=== PATIENT | female | born 2005 | race Caucasian/White ===

== ENCOUNTER 2024-08-09 12:52 | Outpatient (CLI) | payer OTHER, SELFPAY ==
--- NOTE | 2024-08-09 13:00 | CRLHL7_ITS ---
For Patients: As a result of the Cures Act, medical imaging exams and procedure reports are released immediately into your electronic medical record. You may view this report before your referring provider. If you have questions, please contact your health care provider. ULTRASOUND OB PELVIS 1ST TRIMESTER, TRANSVAGINAL CLINICAL INDICATION: Dating and viability. LMP: 06/11/2024. RIVERA by LMP: 03/18/2025. GA: 8 w, 3 d. Previous US: No. CRL: 1.7 cm. 8 w 1 d. RIVERA: 03/20/2025. FHR: 173 BPM. Gestational sac: 3.4 cm. Appears within normal limits. Yolk sac: 3.9mm. Appears within normal limits. Right ovary: Within normal limits. 4.7 x 2.3 x 2.4 cm. Left ovary: Within normal limits. 4.3 x 1.9 x 2.4 cm. CL. IMPRESSION: Single living intrauterine with sonographic gestational age 8 weeks 1 day and sonographic due date 03/20/2025. Subchorionic hemorrhage measures 1.8 x 1.7 x 0.6 cm. Andrea Bryant M.D. Diagnostic Radiologist [email or web address] SP/Dictated by: Andrea Bryant MD @ 08/09/2024 6:59:00 PM (Electronically Signed)
== END 2024-08-09 12:53 | disposition home or self-care (01) ==
LOC: US 12:52
PROVIDERS: PCP Physician Assistant; Visit Provider Registered Nurse
DX: Z34.91 Encounter for supervision of normal pregnancy, unspecified, first trimester (principal); O20.9 Hemorrhage in early pregnancy, unspecified; Z3A.08 8 weeks gestation of pregnancy
CPT/HCPCS: 76817; 83021; 86703; 86706; 86803; 86850; 86900; 86901; 87086; 87340; 87491; 87591

== ENCOUNTER 2024-08-09 13:53 | Outpatient (CLI) | payer OTHER, SELFPAY ==
[2024-08-09 19:59] LABS: Chlamydia DNA Amplified* NOT DETECTED (No Detected); GC DNA Amplified* NOT DETECTED (No Detected)
== END 2024-08-09 13:54 | disposition home or self-care (01) ==
PROVIDERS: PCP Physician Assistant; Visit Provider Registered Nurse
DX: Z34.91 Encounter for supervision of normal pregnancy, unspecified, first trimester (principal); Z3A.08 8 weeks gestation of pregnancy
CPT/HCPCS: 83020; 83021; 85660; 86592; 86703; 86704; 86706; 86762; 86787; 86803; 86850; 86900; 86901; 87086; 87340; 87491; 87591

== ENCOUNTER 2024-11-01 09:00 | Outpatient (CLI) | payer OTHER, BC, SELFPAY ==
--- NOTE | 2024-11-01 09:15 | CRLHL7_ITS ---
For Patients: As a result of the Century Cures Act, medical imaging exams and procedure reports are released immediately into your electronic medical record. You may view this report before your referring provider. If you have questions, please contact your health care provider. OB ULTRASOUND GREATER THAN 14 WEEKS, 11/01/2024 CLINICAL HISTORY: anatomic survey. COMPARISON: None. TECHNIQUE: Real time walters scale imaging of the fetus was performed. Transabdominal imaging performed. FINDINGS: LMP: 06/11/2024. RIVERA by US: 03/20/2025. GA: 20 weeks 1 day. position: Vertex. Placenta/Cord: Placenta position: Anterior. Placenta tip to internal OS: 4.2 cm. Umbilical Cord: 3 vessel cord. Placental insertion: Central. Amniotic Fluid: 4.1 cm SDP. Cervix: Visualized. Length of closed cervix: 3.6 cm. Observed Structures: Calvarium/Spine: Cerebellum 2.0 cm, 19 weeks 0 days Cisterna Magna 5.2 mm Nuchal Fold: 5.8 mm Lateral Ventricle: 6.7 mm CSP Midline Falx Choroid Plexus Abdomen: Stomach Abd Cord Insert Urinary Bladder Kidneys Face: Orbital view Limbs: Upper extremities Lower extremities Hands Feet Vascular: LVOT RVOT BIOMETRY: BDP: 4.7 cm, 20 weeks 0 days. 46.0% HC: 17.6 cm, 20 weeks 1 day. 39.3% AC: 15.3 cm, 20 weeks 4 days. 57.7% FL: 3.3 cm, 20 weeks 2 days. 48.5% FL/AC: 21.5% HC/AC Ratio: 1.2 Heart Rate: 157 bpm age by this US: 20 weeks 2 days RIVERA by this US: 03/19/2025 EFW: 350.7 g, 0 lb 12 oz Percentile by RIVERA: 59.7% IMPRESSION: 1. Concordance of clinical and sonographic dating. 2. Incomplete visualization of the spine, diaphragm, nose, lips, profile and 4 chamber heart. Remainder of the anatomic survey is normal. Short-term follow-up is recommended. Andrea Bryant M.D. Diagnostic Radiologist [facility] [employer]. [email or web address] Transcribed: 1:09 pm DW/Dictated by: Andrea Bryant MD @ 11/01/2024 12:01:00 PM (Electronically Signed)
--- OUTSIDE RECORDS SUMMARY | 2024-11-02 00:47 | XMS_ITS | Clinical Summary ---
Author Organization [facility] Address [address] [place] [address] Care Team Providers Care Equipment Associate Name Role Phone Unavailable Primary Care Provider Unavailabl e Source Comments You are receiving this document as you are listed as the primary care provider,follow-up provider, or the patient has been referred to you for consultation.This is in compliance with the Medicare and[facility] EHR Incentive Program,which states Providers who transition their patient to another setting of careor provider of care or refers their patient to another provider of care shouldprovide summary care record for each transition of care or referral. [facility] Allergies No known active allergies Medications spironolactone (ALDACTONE) 50 MG tablet Take 1 Tablet (50 mg) by mouth daily. 2 Active venlafaxine (EFFEXORXR) 75 MG 24 hour release capsule Take 1 Capsule (75 mg) by mouth daily. 3 Active escitalopram oxalate (LEXAPRO) 20 MG tablet Take 1 Tablet (20 mg) by mouth. 4 Active vitamin-ferrous fumarate-folic acid (PRENATALPLUS) 27-1 MG tabletIndications: Take 1 Tablet by mouth daily. Indications: Active folic Acid 800 MCG tabletIndications: taking for having junenile epilepsy Take 4 Tablets (3,200 mcg) by mouth daily. Indications: taking for having junenile epilepsy Active ondansetron (ZOFRAN-ODT) 4 MG disintegrating tablet Take 1 Tablet (4 mg) by mouth every 8 hours as needed for Nausea. 12 Tablet 5 Active doxylamine succinate (UNISOM) 25 MG tablet Take 0.5 Tablets (12.5 mg) by mouth two times a day. 60 Tablet Active pyridoxine (VITAMIN B-6) 50 MG tablet Take 1 Tablet (50 mg) by mouth three times a day. 30 Tablet 5 Active Active Problems Problem Noted Date Diagnosed Date Chronic idiopathic constipation 03/27/2023 JERILYN (generalized anxiety disorder) 03/24/2023 Mild intermittent asthma without complication Estimated Date of Delivery Comme nts Yes 03/18/2025 Based on last me nstrual period of 06/11/2024 Encounters Date Type Department Care Team Description 08/05/2024 11:40 AM CDT [facility] [address] [id number] Turner Harris MD Nausea and vomiting, unspecified vomiting type (Primary Dx); Hyperemesis gravidarum from Last 3 Months Social History Tobacco Use Types Packs/Day Years Used Date Smoking Tobacco: Never Smokeless Tobacco: Never Tobacco Cessation:Counseling Given: Not Answered Alcohol Use Standard Drinks/Week Comments Never 0 (1 standard drink = 0.6 oz pur e alcohol) Estimated Date of Delivery Comme nts Yes 03/18/2025 Based on last me nstrual period of 06/11/2024 Sex and Gender Information Value Date Recorded Sex Assigned at Not on file 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 Gender Identity Not on file Sexual Orientation Not on file 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 file Not on file Not on fi le Last Filed Vital Signs Vital Sign Reading Time Taken Comments Blood Pressure 122/76 08/05/2024 11:46 AM CDT Pulse 96 08/05/2024 11:46 AM CDT Temperature 36.3 C (97.4 F) 08/05/2024 11:24 AM CDT Respiratory Rate 18 08/05/2024 11:24 AM CDT Oxygen Saturation 99% 08/05/2024 11:24 AM CDT Inhaled Oxygen Concentration - - Weight - - Height - - Body Mass Index - - Plan of Treatment Health Maintenance Due Date Last Done Comments Cervical Cancer Screening Due 2003 Hep C Screening (Preventive Services) 2003 MenB Immunization Discussion 2003 Asthma ACT (score of 20 or higher) 2007 Pneumococcal Vaccine (2 of 2 - PCV) 06/02/2017 06/02/2016 HIV Screening (Preventive Services) 2019 HPV Vaccine (3 - 3-dose series) 09/25/2020 07/03/2020, 05/24/2019 Adult Preventive Visit 09/14/2021 HepB Vaccine (1) 09/14/2022 Chlamydia 12/05/2023 12/04/2022, 12/04/2022 COVID-19 Vaccine (4 - season) 2024 04/15/2022, 06/08/2021, 05/11/2021 Influenza Vaccine (Season Ended) 2025 04/15/2022 DTaP/Tdap/Td Vaccine (7 - Tdap) 10/28/2025 10/29/2015, 12/28/2008, 09/17/2004, Additional history exists Zoster/Shingles Vaccine (1 of 2) 09/14/2053 IPV (Polio) Vaccine Completed 12/28/2008, 03/24/2005, 01/28/2004, Additional history exists Hib Vaccine Aged Out 06/02/2016 No longer eligi ble based on patient's age to complete this topic HepA Vaccine Completed 05/24/2019, 10/29/2015 MCV4 Vaccine Completed 07/03/2020, 10/29/2015 Insurance [employer] FULLY INSURED Win Win Slots
--- OUTSIDE RECORDS SUMMARY | 2024-11-02 00:48 | XMS_ITS | Clinical Summary ---
Author Organization [facility] Address [address] [place] [address] Care Team Providers Care Manager Pacu Name Role Phone NadiaFilemonFaith SHAYNA Primary Care Provider [phone] Andrea Gomez MD Unavailable [phone] Allergies No known active allergies Medications Linaclotide (LINZESS PO) Take 145 mcg by mouth every morning (before breakfast) Active Social History Tobacco Use Types Packs/Day Years Used Date Smoking Tobacco: Never Assessed Adolescent Education Answer Date Record ed Getting School Help Needed Not on file 02/17 Comments Unknown Sex and Gender Information Value Date Recorded Sex Assigned at Not on file 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 Gender Identity Not on file Sexual Orientation Not on file Last Filed Vital Signs Vital Sign Reading Time Taken Comments Blood Pressure 107/93 01/16/2022 9:36 PM CDT Pulse 80 01/16/2022 9:36 PM CDT Temperature 36.6 C (97.9 F) 01/16/2022 9:36 PM CDT Respiratory Rate 18 01/16/2022 9:36 PM CDT Oxygen Saturation 97% 01/16/2022 9:36 PM CDT Inhaled Oxygen Concentration - - Weight 63.5 kg (140 lb) 01/16/2022 9:36 PM CDT Height - - Body Mass Index - - Plan of Treatment Health Maintenance Due Date Last Done Comments ADVANCE CARE PLANNING 2003 ANNUAL REVIEW OF HM ORDERS 2003 CHLAMYDIA SCREENING 2003 YEARLY PREVENTIVE VISIT 09/14/2006 HIV SCREENING 09/14/2018 MENINGITIS B VACCINE (1 of 2 - Standard) 2019 HPV VACCINE (3 - 3-dose series) 09/25/2020 07/03/2020, 05/24/2019 HEPATITIS C SCREENING 09/14/2021 COVID-19 VACCINE (4 - season) 2024 04/15/2022, 06/08/2021, 05/11/2021 PHQ-2 (once per calendar year) 2024 PAP 09/14/2024 INFLUENZA VACCINE (Season Ended) 2025 04/15/2022 DTAP/TDAP/TD VACCINE (7 - Td or Tdap) 10/28/2025 10/29/2015, 12/28/2008, 09/17/2004, Additional history exists ZOSTER VACCINE (1 of 2) 09/14/2053 HEPATITIS B VACCINE Completed 12/28/2008, 2003, 2003 PNEUMOCOCCAL VACCINE: PEDIATRICS (0 to 5 YEARS) AND AT-RISK PATIENTS (6 to 49 YEARS) Aged Out 06/02/2016 No longer eligible based on patient's age to complete this topic MENINGITIS VACCINE Completed 07/03/2020, 10/29/2015 [facility] Plan A Drink [address] [phone] [facility] A [facility] [address] [phone] Care Teams Manager Pacu Relationship Specialty Start Date End Date Arendt, Faith, PURCHASE REQUEST EDITOR [address] [place] [address] PCP - General 03/14/14 Andrea Gomez MD [address] [facility] [address] [place] [address] Physician cisco network engineer 07/13/24
--- OUTSIDE RECORDS SUMMARY | 2024-11-02 00:48 | XMS_ITS | Clinical Summary ---
Author Organization [facility] Address [address] [place] [address] Care Team Providers Care Manager Stars Name Role Phone None Primary Care Provider Unavailabl e Allergies No known active allergies Medications spironolactone (ALDACTONE) 50 mg tabletIndication s:Acne, unspecified acne type Take 1 Tablet (50 mg) by mouth once daily. 90 Tablet 3 05/26/2024 Active FLUoxetine (PROZAC) 20 mg capsuleIndicatio ns:MDD (major depressive disorder), recurrent episode, mild,JERILYN (generalized anxiety disorder) Take 1 Capsule (20 mg) by mouth once daily in the morning. 90 Capsule 2 06/19/2024 Active Active Problems Problem Noted Date Diagnosed Date Chronic idiopathic constipation 03/27/2023 JERILYN (generalized anxiety disorder) 03/24/2023 Resolved Problems Problem Noted Date Diagnosed Date Resolved Date Mild intermittent asthma without complication 01/16/20 23 05/26/2024 Chronic constipation 07/07/2014 023 Constipation 04/10/2014 12/04/2022 Encounters Date Type Department Care Team Description 08/09/2024 Orders Only [facility] Scanner 1 scan: ([facility]-Ord[facility], 08/09/2024 08/05/2024 Telephone [facility] [address] [place] [address] Maira Sanchez PA Appointment from Last 3 Months Immunizations Immunization Administration Dates Next Due DTaP 12/28/2008, 5,03/24/2004,01/27,2003 HIB PRP-OMP (PedvaxHIB) 06/02/2016 HPV 9 (Gardasil 9) 07/03/2020,05/23/2019 Hepatitis A (Peds) 05/23/2019,10/29/2015 Hepatitis B (Peds) 2003 Hepatitis B, Unspecified 12/28/2008,2003,0 2003 Inactivated Polio Vaccine 12/28/2008,,01/28/2004,11/19 Influenza,CCIIV4 PRESERV FREE 04/15/2022 MENINGOCOCCAL VACCINE 2 VIAL 2MO-55YO (MENVEO) 07/03/2020,10/29/2015 MMR 12/28/2008,09/17/2004 Pneumococcal Poly,23-Valent (Pneumovax) 06/02/2016 Tdap 10/29/2015 Varicella Vaccine 03/16/2009,09/17/2004 Family History Medical History Relation Name Comments No Known Problems Brother 1 Chemo No Known Problems Brother 2 Satnam Diabetes type II Father Florencio GI Disease Father Florencio Grant as a child Unknown Maternal Grandfather Heart Disease Maternal Grandmother Hypertension Maternal Grandmother Thyroid Disease Mother Coreen Diabetes Paternal Grandfather Heart Disease Paternal Grandfather Hypertension Paternal Grandfather Alzheimer's disease Paternal Grandmother No Known Problems Sister 1 Krista No Known Problems Sister 2 Christina Relation Name Status Comments Brother 1 Chemo Alive Brother 2 Satnam Alive Father Florencio Alive Maternal Grandfather Maternal Grandmother Alive Mother Coreen Alive Paternal Grandfather Paternal Grandmother Alive Sister 1 Krista Alive Sister 2 Christina Alive Social History Tobacco Use Types Packs/Day Years Used Date Smoking Tobacco: Never Smokeless Tobacco: Never Tobacco Cessation:Counseling Given: Yes Comments:father smokes outside- he quit Alcohol Use Standard Drinks/Week Comments Never 0 (1 standard drink = 0.6 oz pur e alcohol) PHQ-2 Answer Date Recorded PHQ-2 TOTAL SCORE 5 05/26/2024 Social Connections Answer Date Recorded Do you often feel lonely or isolated from those around you? 0 05/22/2024 Financial Resource Strain Answer Date R ecorded Difficulty of Paying Living Expenses 3 05/22/2024 Difficulty of Paying Living Expenses Not on file 05/22/2024 Food Insecurity Answer Date Recorded Do you worry your food will run out before you are able to buy more? 1 05/22/2024 Transportation Needs Answer Date Record ed Does lack of transportation keep you from medica l appointments? 1 05/22/2024 Does lack of transportation keep you from work, meetings or getting things that you need? 1 05/22/2024 Housing Stability Answer Date Recorded What is your housing situation today? 1 05/22/2024 Utilities Answer Date Recorded Do you have trouble paying f or utilities (for example, heat, electricity, water, phone)? 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 Not on file Not on herminio e Obstetrics History Para Term AB IAB SAB Ectopic Multiple Livin g Live Births 0 0 0 0 0 0 0 0 0 0 0 Last Filed Vital Signs Vital Sign Reading Time Taken Comments Blood Pressure 124/82 05/26/2024 7:44 AM METAL TRIMMER Pulse 96 05/26/2024 7:44 AM METAL TRIMMER Temperature 36.3 C (97.4 F) 05/19/2023 8:53 AM METAL TRIMMER Respiratory Rate 16 05/19/2023 8:53 AM METAL TRIMMER Oxygen Saturation 98% 05/26/2024 7:44 AM METAL TRIMMER Inhaled Oxygen Concentration - - Weight 85.3 kg (188 lb) 05/26/2024 7:44 AM METAL TRIMMER Height 168.5 cm (5' 6.34) 05/26/2024 7:44 AM CS T Body Mass Index 30.03 05/26/2024 7:44 AM METAL TRIMMER Plan of Treatment Health Maintenance Due Date Last Done Comments HPV series for age 9-26 (3 - 3-dose series) 09/25/2020 07/03/2020, 05/23/2019 Chlamydia for age 16-24 12/05/2023 12/04/2022 COVID-19 vaccine series ( season) 2024 04/15/2022, 06/08/2021, 05/11/2021 Pap test for age 21-65 09/14/2024 Influenza Vaccine (Season Ended) 2025 04/15/2022 BMI (ht and wt on same day) for age 18+ 05/26/2025 05/26/2024, 06/04/2023, 05/28/2023, Additional history exists Depression screening for age 12+ 05/26/2025 05/26/2024, 04/22/2023, 01/15/2023, Additional history exists Tetanus booster 10/28/2025 10/29/2015 Hepatitis B series for 19+ Completed 12/28, 2003, 2003, Additional history exists (IA) Tdap Completed 10/29/2015 Pneumococcal series for age 6-49 Aged Out 06/02/2016 No longer eligible based on patient's age to complete this topic Meningococcal series for age 11-21 Completed 07/03/2020, 10/29/2015 HIV for age 15-65 Completed 12/04/2022 Hepatitis C screening for age 18-79 Completed 12/04/2022 Procedures Procedure Name Priority Date/Time Associated Diagnosis Comments SCAN-ULTRASOUND REPORT 08/09/2024 12:00 AM CDT LC HIV-1/O/2, 4TH GENERATION Routine 12/04/2022 12:53 PM CDT Need for hepatitis C screening test LC HCV ANTIBODY RFX TO QUANT PCR Routine 12/04/2022 12:53 PM CDT Encounter for screening for HIV GC CHLAMYDIA TRACH PROBE Routine 12/04/2022 12:53 PM CDT Screening for chlamydial disease from Last 3 Months or Most Recently Relevant to Health Maintenance Results * SCAN-ULTRASOUND REPORT (08/09/2024 12:00 AM CDT) Anatomical Region Laterality Modality Other us Scanner OTHER Final Result * LC HCV ANTIBODY RFX TO QUANT PCR (12/04/2022 12:53 PM CDT) HCV Ab Non Reactive Non Reactive 12/07/2022 7:07 AM CDT [facility]) Blood BLOOD SPECIMEN / Unknown Venipuncture / Unknown 12/04/2022 12:53 PM CDT 12/04/2022 12:53 PM CDT Narrative [facility] ([facility]) - 12/07/2022 7:07 AM CDT Performed at: [address] [place] [address] [id number] Army Helicopter Pilot: Gonsalo Mccloud MD, Phone: [phone] Elvira Johnston MD LABORATORY Final R esult Performing Organization Address City/[facility]/ZIP Co de Phone Number [facility] ([facility]) [address] [place] [address], * HIV-1/O/2, 4TH GENERATION (12/04/2022 12:53 PM CDT) Pathologist [facility] HIV Scr 4th Gen Non Reactive Non Reactive 12/06/2022 2:07 PM CDT [facility] ([facility]) Comment: HIV Negative HIV-1/HIV-2 antibodies and HIV-1 p24 antigen were NOT detected. There is no laboratory evidence of HIV infection. Blood BLOOD SPECIMEN / Unknown Venipuncture / Unknown 12/04/2022 12:53 PM CDT 12/04/2022 12:53 PM CDT [facility] ([facility]) - 12/06/2022 2:07 PM CDT Performed at: [address] [place] [address] [id number] Army Helicopter Pilot: Gonsalo Mccloud MD, Phone: [phone] us Elvira Johnston MD LABORATORY Final R esult Performing Organization Address City/[facility]/ZIP Co de Phone Number [facility] [address] [id number] * GC CHLAMYDIA TRACH PROBE (12/04/2022 12:53 PM CDT) CHLAMYDIA PROBE Negative 1:28 AM CDT [facility] N GONORRHOEAE PROBE Negative 12/05/2022 1:28 AM CDT [facility] Other URINE SPECIMEN / Unknown Non-Blood / Unknown 12/04/2022 12:53 PM CDT 12/04/2022 12:53 PM CDT us Elvira Johnston MD MICROBIOLOGY Final R esult [facility] [address] [place] [address], from Last 3 Months or Most Recently Relevant to Health Maintenance Insurance [facility] [place] [id number] [facility] Care Teams Manager Stars Relationship Specialty Start Date End Date None . PCP - General 05/13/24
== END 2024-11-01 09:01 | disposition home or self-care (01) ==
LOC: US 09:02
PROVIDERS: PCP Physician Assistant; Visit Provider Obstetrics & Gynecology
DX: Z34.92 Encounter for supervision of normal pregnancy, unspecified, second trimester (principal); O35.8XX0 Maternal care for other (suspected) fetal abnormality and damage, not applicable or unspecified; Z3A.20 20 weeks gestation of pregnancy
CPT/HCPCS: 76805

== ENCOUNTER 2024-11-28 07:11 | Outpatient (CLI) | payer OTHER, SELFPAY ==
--- NOTE | 2024-11-28 07:15 | CRLHL7_ITS ---
For Patients: As a result of the Century Cures Act, medical imaging exams and procedure reports are released immediately into your electronic medical record. You may view this report before your referring provider. If you have questions, please contact your health care provider. OB ULTRASOUND SURVEY LMP: 06/11/2024. RIVERA by US: 03/20/2025. GA: 24 w, 0 d. INDICATION: Follow-up anatomy. COMPARISON: Ultrasound 11/01/2024. TECHNIQUE: Real time grayscale imaging of the fetus was performed. Evaluate anatomy. Transabdominal imaging performed. FINDINGS: CERVIX: Visualized. Measurement: 3.4 cm. POSITIONING: Vertex. AMNIOTIC FLUID: 6.1 cm. SDP (N: greater than 2 x 1 cm) PLACENTA: Technique: Transabdominal. PLACENTA POSITION: Anterior. DOPPLER: heart rate: 152 bpm. BIOMETRY: BPD: 5.6 cm. 23 w, 2 d, 17.8 percent. HC: 22.0 cm. 24 w, 0 d, 33.1 percent. AC: 20.2 cm. 24 w, 6 d, 68.1 percent. FL: 4.3 cm. 24 w, 0 d, 37.0 percent. FL/AC ratio: 21.2 percent. HC/AC ratio: 1.1. EFW: 688.6 g. Weight: 1 lbs, 8 oz. age by this US: 24 w, 0 d. RIVERA by this US: 03/20/2025. Percentile by RIVERA: 58.7 percent. COMMENT: The diaphragm, three-vessel cord, four-chamber heart, left ventricular outflow tract, nasal profile, nose and lips are visualized and within normal limits. Limited visualization of spine due to position. Grossly unremarkable. IMPRESSION: Single live intrauterine gestation at 24 weeks 0 days and RIVERA 03/20/2025. The estimated weight is 689 grams which lies at the 59th percentile. The abdominal circumference is at 68.1 percent. Limited evaluation demonstrates normal profile, nose, lips, diaphragm, four-chamber heart. Spine appears unremarkable and suboptimally visualized due to position. Tosin Ramires M.D. Diagnostic/Breast Radiologist [email or web address] STAS/devyn shepard/Dictated by: Tosin Ramires MD @ 12/01/2024 11:54:00 AM (Electronically Signed)
== END 2024-11-28 07:12 | disposition home or self-care (01) ==
PROVIDERS: PCP Physician Assistant; Visit Provider Obstetrics & Gynecology
DX: Z34.92 Encounter for supervision of normal pregnancy, unspecified, second trimester (principal); Z3A.24 24 weeks gestation of pregnancy
CPT/HCPCS: 76816

== ENCOUNTER 2024-12-26 08:34 | Outpatient (CLI) | payer OTHER, SELFPAY | END 2024-12-26 08:35 | disposition home or self-care (01) | LOC: NFLDREF 01-03 08:25 | PROVIDERS: PCP Physician Assistant; Referring Provider Physician Assistant; Visit Provider Obstetrics & Gynecology | DX: Z34.03 Encounter for supervision of normal first pregnancy, third trimester (principal) | CPT/HCPCS: 86592 ==

== ENCOUNTER 2025-01-03 07:49 | Outpatient (CLI) | payer OTHER, SELFPAY | END 2025-01-03 07:50 | disposition home or self-care (01) | LOC: NFLDREF 15:04 | PROVIDERS: PCP Physician Assistant; Referring Provider Physician Assistant; Visit Provider Obstetrics & Gynecology | DX: R73.09 Other abnormal glucose (principal) | CPT/HCPCS: 82951; 82952 ==

== ENCOUNTER 2025-01-23 09:10 | Outpatient (CLI) | payer OTHER, BC, SELFPAY ==
--- NOTE | 2025-01-23 09:15 | CRLHL7_ITS ---
For Patients: As a result of the Century Cures Act, medical imaging exams and procedure reports are released immediately into your electronic medical record. You may view this report before your referring provider. If you have questions, please contact your health care provider. RIVERA by US: 03/20/2025, GA: 32w, 0d. Single. INDICATION: Gestational diabetes. CERVIX: Not visualized. POSITIONING: Vertex. AMNIOTIC FLUID: 7.0 cm SDP. PLACENTA: Technique: Transabdominal. PLACENTA POSITION: Anterior. DOPPLER: heart rate: 167 bpm. Biometry: BPD: 8.1 cm. 32w, 4d, 58 percent. HC: 29.4 cm. 32w, 3d, 25 percent. AC: 29.5 cm. 33w, 3d, 86 percent. FL: 6.1 cm. 31w, 4d, 27 percent. FL/AC ratio: 20.67 percent. HC/AC ratio: 1.00. EFW: 2040 g. Weight: 4 lbs, 8 oz. age by this US: 32w, 4d. RIVERA by this US: 03/16/2025. Percentile by RIVERA: 64 percent. IMPRESSION: 1. Sonographic gestational age 32 weeks 4 days and sonographic due date of 03/16/2025. Good correlation with dates. Normal interval growth. 2. Estimated weight 64th percentile. Abdominal circumference 86th percentile. Andrea Bryant M.D. Diagnostic Radiologist [email or web address] bM/Dictated by: Andrea Bryant MD @ 01/23/2025 3:42:00 PM (Electronically Signed)
== END 2025-01-23 09:11 | disposition home or self-care (01) ==
LOC: US 09:10
PROVIDERS: PCP Physician Assistant; Visit Provider Obstetrics & Gynecology
DX: O24.419 Gestational diabetes mellitus in pregnancy, unspecified control (principal); Z3A.32 32 weeks gestation of pregnancy
CPT/HCPCS: 76816

== ENCOUNTER 2025-01-30 12:08 | Outpatient (CLI) | payer OTHER, SELFPAY ==
--- NOTE | 2025-01-30 12:15 | CRLHL7_ITS ---
For Patients: As a result of the Century Cures Act, medical imaging exams and procedure reports are released immediately into your electronic medical record. You may view this report before your referring provider. If you have questions, please contact your health care provider. RIVERA by US: . GA: 33w, 0d. INDICATION: Gestational diabetes mellitus A2. CERVIX: Not visualized. POSITIONING: Vertex. AMNIOTIC FLUID: 5.6 cm SDP. BIOPHYSICAL PROFILE: Total score: 8. Gross body movements: 2. tone: 2. Respiratory activity: 2. Amniotic fluid: 2. (SDP N: Increase 2 x 1 cm) PLACENTA: Technique: Transabdominal. PLACENTA POSITION: Anterior. DOPPLER: heart rate: 163 bpm. IMPRESSION: Normal biophysical profile 12/09. Andrea Bryant M.D. Diagnostic Radiologist [email or web address] bM/Dictated by: Andrea Bryant MD @ 01/30/2025 4:22:00 PM (Electronically Signed)
== END 2025-01-30 12:09 | disposition home or self-care (01) ==
LOC: US 12:08
PROVIDERS: PCP Physician Assistant; Visit Provider Obstetrics & Gynecology
DX: O24.419 Gestational diabetes mellitus in pregnancy, unspecified control (principal); Z3A.33 33 weeks gestation of pregnancy
CPT/HCPCS: 76819

== ENCOUNTER 2025-02-03 23:22 | Outpatient (CLI) | payer OTHER, BC, SELFPAY ==
[2025-02-03 23:42] VITALS: BP 134/77; PULSE 97
[2025-02-03 23:43] VITALS: PULSE 99; O2SAT 96
[2025-02-03 23:45] VITALS: PULSE 99; O2SAT 94
[2025-02-03 23:58] VITALS: BP 116/65; PULSE 95
[2025-02-04] VITALS (15 sets, daily range): BP systolic 87–119; BP diastolic 50–63; PULSE 74–97; TEMP 36.9
[2025-02-04 00:35] LABS: Hematocrit* 33.6 % (33.0-51.0); Hemoglobin* 11.1 gm/dL (12.0-16.0); Mean Corpuscular HGB Conc 33 gm/dL (32-36); Mean Corpuscular Hemoglobin 27 pg (26-34); Mean Corpuscular Volume 82 fL (80-100); Red Blood Count* 4.08 m/uL (4.00-5.20); White Blood Count* 15.40 K/uL (4.50-11.00)
[2025-02-04 00:48] LABS: Slide Review Reflex No
[2025-02-04] MEDS: LACTATED RINGERS 500 ML 500 ML IV (00:50)
[2025-02-04 00:52] LABS: Alanine Aminotransferase* 17 U/L (4-35); Aspartate Amino Transferase* 22 U/L (12-35); Blood Urea Nitrogen* 9 mg/dL (5-24); Creatinine* 0.5 mg/dL (0.5-1.5); Estimated Glomerular Filt Rate 137 ml/min
[2025-02-04 01:08] LABS: Protein Creatinine Ratio Urine 0.34 (0-0.19)
[2025-02-04] MEDS: LACTATED RINGERS 1000 ML 1,000 ML IV (02:36)
[2025-02-04 04:35] LABS: Protein Creatinine Ratio Urine 0.64 (0-0.19)
--- NOTE | 2025-02-04 05:22 | PC.OBNST ---
NST Note NST Note Start: 02/03/25 23:26 Freq: ONCE Status: Active Protocol: Document 02/04/25 05:18 STEVIEMariama (Rec: 02/04/25 05:22 EMERITA Pries) NST Note 1 Para (# of births) 0 EDC 03/20/25 Gestational Age In 33 Weeks & 5 Days Weeks & Days High Risk Factors Diabetes - Gestational Insulin Patient Presented Headache with Complaint(s) of Other Complaints Pt called triage line and was directed to the center by Marsha Sarmiento CNM. Pt reports headache 12/11 despite taking Tylenol and Reglan. Reactive Yes Appropriate for Yes Gestational Age MARIS Sanchez RN Date 02/04/25 Reactive Yes Appropriate for Yes Gestational Age MARIS Evans Date 02/04/25 OB NST charge Yes Complete NST Note Yes via Write Note The provider's electronic signature indicates the NST is reactive/appropriate for gestational age. *Note to provider: If an addendum is required, open the patient's chart and click on the note under the Nurse/Allied Health tab.
== END 2025-02-04 04:26 | disposition home or self-care (01) ==
LOC: OB OUT 23:22 → OB 23:22
PROVIDERS: PCP Physician Assistant; Visit Provider Obstetrics & Gynecology
DX: O26.893 Other specified pregnancy related conditions, third trimester (principal); R51.9 Headache, unspecified; Z3A.33 33 weeks gestation of pregnancy
CPT/HCPCS: 36415; 59025; 82565; 82570; 84156; 84450; 84460; 84520; 85027; G0463; A9270; J1200; J7120

== ENCOUNTER 2025-02-06 08:44 | Outpatient (CLI) | payer OTHER, BC, SELFPAY | END 2025-02-06 08:45 | disposition home or self-care (01) | PROVIDERS: PCP Physician Assistant; Visit Provider Obstetrics & Gynecology | DX: Z34.93 Encounter for supervision of normal pregnancy, unspecified, third trimester (principal); Z3A.34 34 weeks gestation of pregnancy | CPT/HCPCS: 82570; 84156 ==

== ENCOUNTER 2025-02-06 09:08 | Outpatient (CLI) | payer OTHER, BC, SELFPAY ==
--- NOTE | 2025-02-06 09:15 | CRLHL7_ITS ---
For Patients: As a result of the Century Cures Act, medical imaging exams and procedure reports are released immediately into your electronic medical record. You may view this report before your referring provider. If you have questions, please contact your health care provider. INDICATION: GDAM2. TECHNIQUE: Ultrasound OB pelvis transabdominal. Real-time walters-scale imaging of the fetus was performed without stress testing. COMPARISON: Ultrasound January 30, 2025 FINDINGS: heart rate: Regular, 133 bpm. position: Cephalic. Placenta: Anterior Amniotic fluid volume single deepest pocket 5.3 cm, 2/2. motion 2/2. tone 2/2. breathing movements 2/2. Umbilical artery S/D ratio: Not measured. IMPRESSION: Single viable intrauterine with a biophysical profile 12/09. Dictated by Robin Elise MD @ 02/06/2025 3:13:16 PM (Electronically Signed)
== END 2025-02-06 09:09 | disposition home or self-care (01) ==
LOC: US 09:08
PROVIDERS: PCP Physician Assistant; Visit Provider Obstetrics & Gynecology
DX: O24.419 Gestational diabetes mellitus in pregnancy, unspecified control (principal); Z34.93 Encounter for supervision of normal pregnancy, unspecified, third trimester; Z3A.34 34 weeks gestation of pregnancy
CPT/HCPCS: 76819; 82570; 84156

== ENCOUNTER 2025-02-13 09:11 | Outpatient (CLI) | payer OTHER, BC, SELFPAY ==
--- NOTE | 2025-02-13 09:15 | CRLHL7_ITS ---
For Patients: As a result of the Century Cures Act, medical imaging exams and procedure reports are released immediately into your electronic medical record. You may view this report before your referring provider. If you have questions, please contact your health care provider. Indication: Gestational diabetes mellitus. Assess well-being with a biophysical profile examination. Technique: Sonography of the gravid uterus was performed. The study is limited to the protocol for a biophysical profile and limited to that which is discussed below Comparison: February 06, 2025 Findings: The cervix was not visualized. position is vertex. The single deepest pocket 6.2 centimeters. The placenta is anterior. heart rate is 144 beats per minute. The biophysical profile score is 6/8. There were inadequate breathing movements for a normal score. Impression: The biophysical profile score is 6/8. Two points were deducted for inadequate breathing movements during the time course of the exam. The biophysical profile score was 6/8 on February 06, 2025 Dictated by Alli Hunt MD @ 02/13/2025 10:13:09 AM (Electronically Signed)
== END 2025-02-13 09:12 | disposition home or self-care (01) ==
LOC: US 09:12
PROVIDERS: PCP Physician Assistant; Visit Provider Obstetrics & Gynecology
DX: O24.419 Gestational diabetes mellitus in pregnancy, unspecified control (principal)
CPT/HCPCS: 76819

== ENCOUNTER 2025-02-20 12:13 | Outpatient (CLI) | payer OTHER, BC, SELFPAY ==
--- NOTE | 2025-02-20 12:15 | CRLHL7_ITS ---
For Patients: As a result of the Cures Act, medical imaging exams and procedure reports are released immediately into your electronic medical record. You may view this report before your referring provider. If you have questions, please contact your health care provider. OB ULTRASOUND RIVERA by US: 03/20/2025. GA: 36 w, 0 d. Single. Comparison: Ultrasound 02/13/2025, 02/06/2025, 01/30/2025. INDICATION: Gestational diabetes mellitus. TECHNIQUE: Real time grayscale imaging of the fetus was performed. Transabdominal. CERVIX: Not visualized. POSITIONING: Vertex. AMNIOTIC FLUID: 7.4 cm. SDP (N: greater than 2 x 1 cm) BIOPHYSICAL PROFILE: 2: Gross body movements 2: tone 2: Respiratory activity 2: Amniotic fluid SDP (N: greater than 2 x 1 cm) 8/8: Total score PLACENTA: Technique: Transabdominal. PLACENTA POSITION: Anterior. DOPPLER: heart rate: 126 bpm. BIOMETRY: BPD: 8.9 cm. 36 w, 0 d, 60%. HC: 32.5 cm. 36 w, 6 d, 39%. AC: 34.0 cm. 37 w, 6 d, 96%. FL: 6.8 cm. 35 w, 1 d, 23%. FL/AC ratio: 20.09%. HC/AC ratio: 0.96. EFW: 3061g. Weight: 6 lbs., 12 oz. age by this US: 36 w, 3 d. RIVERA by this US: 03/17/2025. Percentile by RIVERA: 76%. IMPRESSION: 1. Normal biophysical profile score 8/8. 2. Sonographic gestational age 36 weeks 3 days and sonographic due date 03/17/2025. Good correlation with dates. Normal interval growth. 3. Estimated weight 76th percentile. Abdominal circumference 96th percentile. Andrea Bryant M.D. Diagnostic Radiologist [email or web address] J CARLOS/devyn shepard/Dictated by: Andrea Bryant MD @ 02/20/2025 5:58:00 PM (Electronically Signed)
== END 2025-02-20 12:14 | disposition home or self-care (01) ==
LOC: US 12:17
PROVIDERS: PCP Physician Assistant; Visit Provider Obstetrics & Gynecology
DX: O24.419 Gestational diabetes mellitus in pregnancy, unspecified control (principal); Z3A.36 36 weeks gestation of pregnancy
CPT/HCPCS: 76816; 76819; 87081; 87653

== ENCOUNTER 2025-02-27 09:10 | Outpatient (CLI) | payer OTHER, BC, SELFPAY ==
--- NOTE | 2025-02-27 09:15 | CRLHL7_ITS ---
For Patients: As a result of the Cures Act, medical imaging exams and procedure reports are released immediately into your electronic medical record. You may view this report before your referring provider. If you have questions, please contact your health care provider. OBSTETRICAL ULTRASOUND ??? BIOPHYSICAL PROFILE INDICATION: GDMA2. CLINICAL HISTORY: RIVERA by Ultrasound: 03/20/2025 Gestational Age: 37 weeks 0 days COMPARISON: 02/20/2025, 02/13/2025, 02/06/2025. TECHNIQUE: Real-time walters-scale transabdominal imaging of the fetus was performed. FINDINGS: Fetus: Single Cervix: Not visualized positioning: Vertex Amniotic Fluid: 5.2 cm SDP BIOPHYSICAL PROFILE: Gross body movements: 2 tone: 2 Respiratory activity: 2 Amniotic fluid SDP: 2 Total score: 8 Placenta technique: Transabdominal Placenta position: Anterior heart rate: 142 bpm IMPRESSION: Normal biophysical profile score of 8/8. ANDREA VÁSQUEZ M.D. Diagnostic Radiologist [email or web address] Transcribed: 10:[address]/Dictated by: Andrea Vásquez MD @ 02/27/2025 10:09:00 AM (Electronically Signed)
== END 2025-02-27 09:11 | disposition home or self-care (01) ==
LOC: US 09:11
PROVIDERS: PCP Physician Assistant; Visit Provider Obstetrics & Gynecology
DX: O24.419 Gestational diabetes mellitus in pregnancy, unspecified control (principal); Z3A.37 37 weeks gestation of pregnancy
CPT/HCPCS: 76819

== ENCOUNTER 2025-03-01 20:14 | Inpatient (IN) | payer OTHER, BC, SELFPAY ==
[2025-03-01] VITALS (46 sets, daily range): BP systolic 105–141; BP diastolic 60–77; PULSE 88–131; RESP 16; TEMP 36.7; O2SAT 90–100
[2025-03-01 18:59] LABS: Alanine Aminotransferase* 13 U/L (4-35); Aspartate Amino Transferase* 20 U/L (12-35); Blood Urea Nitrogen* 9 mg/dL (5-24); Creatinine* 0.5 mg/dL (0.5-1.5); Estimated Glomerular Filt Rate 137 ml/min
[2025-03-01 19:03] LABS: Protein Creatinine Ratio Urine 0.04 (0-0.19)
[2025-03-01 19:18] LABS: Hematocrit* 34.9 % (33.0-51.0); Hemoglobin* 11.2 gm/dL (12.0-16.0); Mean Corpuscular HGB Conc 32 gm/dL (32-36); Mean Corpuscular Hemoglobin 26 pg (26-34); Mean Corpuscular Volume 80 fL (80-100); Red Blood Count* 4.38 m/uL (4.00-5.20); White Blood Count* 14.56 K/uL (4.50-11.00)
[2025-03-01 19:19] LABS: Slide Review Reflex No
--- NOTE | 2025-03-01 20:14 | PM.OBHPLI ---
OB - H&P: HPI Labor/Induction History of Present Illness Time Seen by Provider: 20:14 Date Seen: 03/01/25 Chief complaint: Maternity Narrative: Delayed documentation due to patient cares. The patient is a 19 year old 1 para 0 at 37w2d GA by 8 week US, who presented to triage with decreased movement. is complicated by GDM A2 (38u NPH insulin QHS), elevated BMI, anxiety/depression and elevated BP without a diagnosis of HTN. On arrival, she had a mild range BP of 141/77mgHg representing her second elevated BP by greater than 4 hours. First elevated BP was during RN visit at 36 weeks. All subsequent BPs were within normal limits. Patient notes a history of headaches, but none today. She denies any persistent vision changes, though did have a brief episode of feeling hot and seeing sparkles while here while laying flat that resolved with repositioning. She has mild RUQ pain, described as soreness that has not required any treatment. She notes occasional cramping, but no regular/painful uterine contractions. No vaginal bleeding or leaking of fluid. Initially presented for decreased movement, now notes she can feel baby move around well. Baby was entirely reactive/reassuring across extended monitoring. Preeclampsia labs were obtained and found to be within normal limits - Platelets 335, creatinine 0.5, AST 20, ALT 13, UPCR 0.04. Admission hemoglobin 11.2. Patient is on 38u NPH insulin QHS. Last insulin increase on 02/20. BG log since 02/21 was reviewed - 2 fasting values elevated 4 two hour PP values elevated (of total 33 values). In total, 18% of values above goal. Specific Issues/Plans G 1 P 0 S.O.: Hair H&P Dr. Jarrett 02/27 # GDM A2 elevated 1-h glucose screen: 161 fasting blood sugar 124 at time of 3-h GTT. Nutrition referral. Begin QID BS monitoring. Fasting blood sugars all elevated on 01/09/25. Refer to Charley Harper for insulin therapy. 01/10/25: 14 U NPH --> increased incrementally --> 28U recommended on 02/02 for persistently isolated fastings --> increased to 30U then 34 U then 38 U (see notes) Growth ultrasounds q 4 weeks beginning at 28 weeks Twice weekly antepartum testing beginning at 32 weeks Delivery at 39 0/7-39 6/7 week if well controlled, 37 0/7-38 6/7 if not well controlled #Hep B nonimmune. Plans to re-vaccinate . Rubella nonimmune. Rec. PP vaccine. Varicella nonimmune. Rec. PP vaccine. We discussed her antibody test results on 09/05/2024. 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 This may explain why she experienced an inadequate antibody vaccine response. We discussed the safety of the hepatitis-B vaccination during , and the recommendation that rubella and varicella vaccinations be deferred until after . Because she has a low risk job (works from home) she plans to defer all re-vaccinations until after . #Depression and anxiety. PHQ 13, JERILYN 14. Will initiate sertraline 25 mg daily for the 1st 7 days, then 50 mg daily thereafter. Stable mood on this dose Followed by therapist. #Elevated body mass index at 30.7. Recommend starting daily low-dose aspirin at 12 weeks to reduce risk of preeclampsia. #Seen on Center 02/04 for unremitting BALLARD, ultimately resolved with IV hydration and Benadryl. Low-normal BP, normal HELLP labs, but elevated protein:creatinine. Repeat at 34 week visit: normal at 0.12; previous elevated likely related to lack of hydration. # Solitary elevated BP in 36th week: 146/82; repeat reportedly normal that day. Normal at 37 weeks. Consider diagnosis of gestational HTN for any recurrent elevation Imagin11/01/2024: anatomy scan. Suboptimal views of spine, diaphragm, nose/lips, profile, and four chamber heart. EFW 60%. SDP 4.1 cm. Anterior placenta without previa. Normal cervical length, 3.6 cm. 11/28/2024: profile, nose/lips, diaphragm, and four-chamber heart appear normal. Spine still difficult to image due to position, but appeared normal. EFW 59%, SDP 6.1 cm, vertex. 01/23/2025: Vertex, SDP 7 cm, EFW 2040 g or 4 lb 8 oz (64%), BPD 58%, HC 25%, AC 86%, FL 27% 03/20/2025: Vertex, SDP 7.4 cm, EFW 3061 g or 6 lb 12 oz (76%), BPD 60%, HC 39%, AC 96%, FL 23% Vaccinations: Flu: 02/13/25 Covid: declined Tdap: 01/23/25 RSV: 02/13/25 Hep B: PP Varicella: PP Rubella: PP 32 wk mental health: 02/13/25 GBS: neg Meds Home Medications and Allergies Home Medications ?Medication ?Instructions ?Recorded ?Confirmed ?Type docosahexaenoic acid 200 mg 200 mg PO DAILY 08/09/24 03/01/25 History capsule ( DHA) folic acid 800 mcg tablet 0.8 mg PO QDAY 08/09/24 03/01/25 History sertraline 50 mg tablet 50 mg PO QDAY #90 tabs 08/09/24 03/01/25 Rx metoclopramide HCl 5 mg tablet 5 mg PO Q8H #10 tabs 12/26/24 03/01/25 Rx (Reglan) Blood Glucose Meter #1 ea 01/03/25 02/27/25 Rx Test Strips #100 ea 01/03/25 02/27/25 Rx lancets #100 ea 01/03/25 02/27/25 Rx alcohol swabs (Alcohol Pads) 2 pad topical DAILY #100 ea 01/10/25 03/01/25 Rx insulin syringe-needle U-100 1 mL #100 ea 01/10/25 02/27/25 Rx 30 gauge x 5/16 (Sure Comfort Insulin Syringe) acetaminophen 500 mg tablet 1,000 mg PO Q6H PRN 02/13/25 03/01/25 History (Tylenol Extra Strength) insulin NPH isoph U-100 human 100 38 unit subcut .hs 02/23/25 03/01/25 History unit/mL subcutaneous suspension (Humulin N NPH U-100 Insulin (isophane susp)) Allergies Allergy/AdvReac Type Severity Reaction Status Date / Time No Known Drug Allergies Allergy Verified 03/01/25 17:35 OB - H&P: Exam Physical Exam: Vital signs: Temp Pulse Resp BP Pulse Ox 98.0 F 91 16 112/60 99 03/01/25 17:34 03/01/25 19:59 03/01/25 17:34 03/01/25 19:59 03/01/25 20:04 Narrative: General: Alert and oriented, no acute distress Psych: Appropriate mood and affect Abdomen: Gravid. Patient notes slight discomfort palpation of a specific spot in the right upper quadrant, Carnett sign equivocal. Vertex by [facility], last ultrasound on 02/27 was vertex. EFW by ultrasound on 02/20 was 3061g at 76% - AC 96%. FHR: On admission - Category 1. Baseline 150bpm, moderate variability, accelerations present, no decelerations. At 2107 FHR was noted to have a spontaneous prolonged deceleration to a beth of 65bpm. Patient was resting in semi fowlers position at the time. Denied pain, bleeding, leaking of fluids. Feeling well. Maternal repositioning ensued to hand and knees, emergent IV placed and 500cc fluid bolus started. FHR was noted to recover to the 100s at 2109 then 110s by about 2111 with moderate variability. Continuous monitoring ensued - reactive and reassuring with baseline 130bpm, moderate variability, 15x15 accelerations, no decelerations. Huntley: Uterine irritability noted, intermittent contractions At 2300, cervix: 1/60/-1, cook catheter placed with 60/60cc instilled. Small volume bloody show noted. OB - Results Labs Labs: Short CBC 03/01/25 Range/Units 18:35 WBC 14.56 H (4.50-11.00) K/uL Hgb 11.2 L (12.0-16.0) gm/dL Hct 34.9 (33.0-51.0) % Plt Count 335 (140-440) K/uL BMP 03/01/25 18:35 BUN 9 Creatinine 0.5 Liver Function 03/01/25 Range/Units 18:35 AST 20 (12-35) U/L ALT 13 (4-35) U/L OB - Problem Based A/P Additional Plan (1) Gestational hypertension: Status: Acute (2) GDM, class A2: Status: Acute (3) , high-risk: Status: Acute (4) Anxiety and depression: Problem details: treated with Zoloft 50 mg daily Status: Acute Plan Tala is a 19yo at 37w2d GA admitted for IOL in the setting of gHTN. is complicated by GDMA2, elevated BMI, anxiety and depression. Patient initially presented to triage with decreased movement. status was entirely reactive/reassuring across extended monitoring. Patient's initial blood pressure on arrival was 141/77mmHg, where she had a previous elevation in the clinic during a nurse visit for NST. Technically she does not meet criteria for gestational hypertension given to elevated blood pressures appropriate bike more than 4 hours. All subsequent blood pressure meds in triage were normal, preeclampsia labs were normal. Patient notes some slight right upper quadrant discomfort, it has been so mild that she has not needed any treatment. On exam, there is slight tenderness but only in a very focal spot and equivocal Carnett sign. Suspect this is musculoskeletal versus related to position. Patient has chronic headaches, but denies any today. She had a transient episode of of vision change while she was feeling hot and lying flat on her back, resolved with repositioning. Clinically, I do not feel any of these transient very mild symptoms are consistent with a severe feature of preeclampsia. I will continue to monitor for signs/symptoms of severe disease diligently. - FHR was category 1 on admission. Spontaneous prolonged FHR deceleration was noted 2108, resolved with maternal repositioning and 500cc IVF bolus. No known inciting factors, IOL had not yet been started. After extended monitoring with category 1 FHR tracing noted. IOL was started at 2300. - Cervix was 1/60 and -1. Cook catheter was placed without difficulty, 60/60cc instilled. Plan low-dose Pitocin protocol overnight. - Blood pressures are normal to mild range, diligent BP monitoring ongoing - Patient has not required any long/short acting the hypertensive medication - Preeclampsia labs normal on admission, repeat as clinically indicated - Home BG log reviewed, glycemic control has been adequate - 18% values elevated since her last dose adjustment on 02/20. Plan to give her half of her NPH insulin tonight, 18U as she typically takes 38U QHS. BG monitoring and SSI per protocol. - BT O+ - GBS negative
[2025-03-01] MEDS: LACTATED RINGERS 1000 ML 1,000 ML 1200 ML IV (21:14)
[2025-03-01] MEDS: INSULIN NPH 100 UNIT/ML 18 UNIT SUBCUT (23:36)
[2025-03-02] VITALS (59 sets, daily range): BP systolic 88–131; BP diastolic 50–75; PULSE 77–134; RESP 16–20; TEMP 36.5–37.1; O2SAT 86–100; BMI 33.4
[2025-03-02] MEDS: ONDANSETRON 2 MG/ML inj 4 MG IV (02:10)
[2025-03-02] MEDS: LACTATED RINGERS 1000 ML 1,000 ML 125 ML IV (03:05)
[2025-03-02] MEDS: OXYTOCIN 30 unit/500 ML in NS 30 UNIT/500 ML BAG IVPB (03:05)
[2025-03-02] MEDS: LACTATED RINGERS 1000 ML 1,000 ML 117 ML IV (11:24)
[2025-03-02] MEDS: INSULIN ASPART 100 UNIT/ML SUBCUT (12:00)
--- NOTE | 2025-03-02 12:58 | PM.OBPNL ---
Subjective Time Seen by Provider: 12:00 Date Seen: 03/02/25 Objective Vital Signs: Last Vital Signs Temp 98.5 F 03/02/25 12:24 Pulse 99 03/02/25 12:23 Resp 16 03/02/25 12:24 BP 119/69 03/02/25 12:23 Pulse Ox 96 03/02/25 11:37 Comments: Tala is having minimal pain. 07/11. Pelvic Exam Dilation (cm): 4 Effacement (%): 75 Station: -1 Comments: Patient consented to AROM. AROM with clear fluid mixed with some blood tinged mucous Informed Tala she can get an epidural anytime Contractions Contraction pattern: Regular Contraction intensity: Mild Pitocin Rate (mU/min): 9 Assessment Assessment: induction ongoing Station: -1 Amniotic Membrane Status: AROM (1206) Status: Category l Heart Rate Baseline: 135 Detention Variability: Moderate (6-25) Monitor Accelerations: Present Monitor Decelerations: None
[2025-03-02] MEDS: LIDOCAINE 2% (PF) 5 ML VIAL EPIDURAL (13:37)
[2025-03-02] MEDS: ROPIVACAINE 0.2% 100 ml 100 ML 12 MG EPIDURAL (13:38)
--- NOTE | 2025-03-02 13:41 | PM.ANBPRC ---
[facility] Medical History (Updated 03/01/25 @ 23:12 by Katrina Solis MD) Acne ?L70.9 - Acne, unspecified (ICD-10) Epilepsy ?G40.909 - Epilepsy, unspecified, not intractable, without status epilepticus (ICD-10) Surgical History (Updated 02/27/25 @ 10:37 by Frida Jarrett MD) H/O wisdom tooth extraction ?K08.409 - Partial loss of teeth, unspecified cause, unspecified class (ICD-10) Family History Other Alzheimers disease Cardiovascular disease Depression Diabetes High blood pressure Thyroid disease Social History (Updated 02/27/25 @ 10:38 by Frida Jarrett MD) Narrative: Lives in [place] with S.O. Works at [employer]. No tob / ETOH / recreational drug use. What is your current living situation?: I presently have a place to live Problems where you live: no known problems In the past 12 months, utilities in danger of being shut off: no In past 12 months, lack of transportation kept you from medical appts, meetings, work, or getting things needed for daily living: no In the past 12 mos, have been you worried that your food would run out before you had money to buy more?: never true In the past 12 mos, the food you bought just didn't last and you didn't have money to buy more?: never true Smoking Status: Never smoker How often does anyone, including family, friends and others, physically hurt you: never How often does anyone, including family, friends and others, insult or talk down to you: never How often does anyone, including family, friends and others, threaten you with harm: never How often does anyone, including family, friends and others, scream or curse at you: never Meds Home Medications and Allergies Home Medications ?Medication ?Instructions ?Recorded ?Confirmed ?Type docosahexaenoic acid 200 mg 200 mg PO DAILY 08/09/24 03/01/25 History capsule ( DHA) folic acid 800 mcg tablet 0.8 mg PO QDAY 08/09/24 03/01/25 History sertraline 50 mg tablet 50 mg PO QDAY #90 tabs 08/09/24 03/01/25 Rx metoclopramide HCl 5 mg tablet 5 mg PO Q8H #10 tabs 12/26/24 03/01/25 Rx (Reglan) Blood Glucose Meter #1 ea 01/03/25 02/27/25 Rx Test Strips #100 ea 01/03/25 02/27/25 Rx lancets #100 ea 01/03/25 02/27/25 Rx alcohol swabs (Alcohol Pads) 2 pad topical DAILY #100 ea 01/10/25 03/01/25 Rx insulin syringe-needle U-100 1 mL #100 ea 01/10/25 02/27/25 Rx 30 gauge x 5/16 (Sure Comfort Insulin Syringe) acetaminophen 500 mg tablet 1,000 mg PO Q6H PRN 02/13/25 03/01/25 History (Tylenol Extra Strength) insulin NPH isoph U-100 human 100 38 unit subcut .hs 02/23/25 03/01/25 History unit/mL subcutaneous suspension (Humulin N NPH U-100 Insulin (isophane susp)) Allergies Allergy/AdvReac Type Severity Reaction Status Date / Time No Known Drug Allergies Allergy Verified 03/01/25 17:35 Results Labs Labs: Laboratory Results - last 24 hr 03/01/25 03/01/25 18:23 18:35 WBC 14.56 H RBC 4.38 Hgb 11.2 L Hct 34.9 MCV 80 MCH 26 MCHC 32 Plt Count 335 BUN 9 Creatinine 0.5 Estimated GFR 137 AST 20 ALT 13 Urine Creatinine 140.9 Protein/Creatinin Ratio 0.04 Urine Total Protein < 5 Blood Type O Positive Antibody Screen NEGATIVE Vital Signs Vital Signs: Last Vital Signs Temp 98.5 F 03/02/25 12:24 Pulse 114 H 03/02/25 13:39 Resp 16 03/02/25 12:24 BP 125/65 03/02/25 13:39 Pulse Ox 87 L 03/02/25 13:40 Weight: 98.656 kg Height: 171.45 cm Anesthesia Procedures Epidural Insertion Patient Location: OB Start Time: 13:20 Stop Time: 13:45 Start Date: 03/02/25 Stop Date: 03/02/25 Reason for Block: primary anesthetic Patient Position: sitting Performed By: Hair Salazar Preanesthetic Checklist: IV checked, risks and benefits discussed, surgical consent, monitors and equipment checked, pre-op evaluation, timeout performed and anesthesia consent Prep: chlorhexidine gluconate Monitoring: blood pressure monitoring, telemetry monitor, continuous pulse oximetry and heart rate Approach: midline Vertebral Space: lumbar (1-5) Needle Type: Tuohy needle Injection Technique: continuous catheter (catheter) Needle gauge: 17 Needle Length (cm): 10 cm Needle Insertion Depth (cm): 7 Catheter Gauge: 19 Catheter Type: multi-orifice Catheter at skin depth (cm): 12 Test Dose Result: negative and lidocaine 1.5% with epinephrine 1 to 200,000
[2025-03-02] MEDS: LACTATED RINGERS 1000 ML 1,000 ML 116 ML IV (14:26)
--- NOTE | 2025-03-02 17:43 | W.PM.VAGDEL1 ---
Procedure Delivery date: 03/02/25 Procedure Done: Global Events: GDMA2 and Gestational Hypertension Intrapartal Events: Labor Induction Delivery monitor: external FHT Route of delivery: Episiotomy description: None Laceration description: Labial (right labial ) Delivery repair: Vicryl and Chromic Anesthesia type: Epidural Disposition: floor Narrative: The patient is a 19 year-old G 1 P 0 admitted on 03/01/2025 at 37 and 2/7 weeks gestation for induction of labor due to new diagnosis of gestational hypertension. GBS negative Labor Analgesia: Epidural Pitocin: For augmentation and active management of the 3rd stage AROM: March 02 at 1206, with clear fluid Labor onset: March 02 at 13 14 Complete: March 02 at 1605 Pushing: March 02 at 16 16 heart tones during second stage were category I for the majority of pushing until, there were deep variable decelerations down to the 90s. However, patient was eminently delivering. At 1705 a viable male delivered in vertex OA presentation over intact via spontaneous vaginal delivery. The infant's body was delivered in the usual manner without difficulty. The infant was placed on maternal abdomen. The cord was clamped and cut after a 30-60 second delay. The nose and mouth were bulb suctioned. Infant weight: Pending. 8 at 1 minute and 8 at 5 minutes. Shoulder dystocia: No. Nuchal cord: Nuchal cord x1. Loose. Delivered through and reduced at the after delivery. Placenta delivered spontaneously and complete at 1709 with a 3-vessel cord. Placenta examined and noted to be complete. Placenta was sent to pathology for GDMA2 and GHTN. The cervix and vagina were inspected for lacerations. Laceration(s): Small 2nd degrees on both side of midline, repaired with 2-0 vicryl in a continuous fashion. Superficial right labial tear closed with a figure of 8 using 2-0 chromic. Complications: None Estimated blood loss: 50 Cord gases: not indicated. Sponge and needles counts are correct. Mother and infant were stable at the time of this note.
[2025-03-02] MEDS: IBUPROFEN 600 MG TABLET PO (18:57)
[2025-03-02] MEDS: ACETAMINOPHEN 500 MG TABLET 1000 MG PO (23:21)
[2025-03-03] MEDS: IBUPROFEN 600 MG TABLET PO ×3 (02:44→17:09)
[2025-03-03 03:05] VITALS: BP 110/64; PULSE 96; RESP 20; TEMP 36.5; O2SAT 96
[2025-03-03] MEDS: ACETAMINOPHEN 500 MG TABLET 1000 MG PO ×3 (05:03→19:40)
[2025-03-03 06:00] LABS: Hemoglobin* 9.2 gm/dL (12.0-16.0)
--- NOTE | 2025-03-03 07:41 | PM.OBPNVD1 ---
OB - PN:Subj Subjective Date Seen: 03/03/25 Narrative: Tala is a 19 year old who was admitted for IOL for GHTN and GDMA2 and proceeded to have a vaginal ? with a labial laceration that was repaired.The patient feels well.? The pain is well controlled with current medications.? She has no new complaints.? Urinary output is adequate and she is voiding without difficulty.? Has a good appetite, is tolerating a general diet, is passing flatus, and has not had a bowel movement.? Has scant amount of rubra lochia.? She is ambulating well. She is on the fence about . the baby's blood sugars were dropping and are stable now with donor milk. She is not interested in pumping and may switch over to bottlefeeding formula or donor milk. ? OB - PN: Obj Exam Physical Exam: Vital signs: Temp Pulse Resp BP Pulse Ox O2 Del Method 97.7 F 96 20 110/64 96 Room Air 03/03/25 03:05 03/03/25 03:05 03/03/25 03:05 03/03/25 03:05 03/03/25 03:05 03/03/25 03:05 Narrative: GENERAL APPEARANCE:? normal affect, alert, no distress MOOD:? appropriate CHEST:? clear to auscultation HEART:? regular rate and rhythm ABDOMEN:? soft, non-tender the uterine fundus is 1 fingerbreadth below Umbilicus, Midline and is appropriate for the stage of recovery. PERINEUM:? moderate edema of the perineum, there is a labial laceration that is well approximated with no abnormal erythema or discharge EXTREMITIES:? normal and mild edema OB - PN: Obj Data Labs Labs: Laboratory Results - last 24 hr 03/03/25 05:50 Hgb 9.2 L OB - PN: A/P Delivery Assessment and Plan (1) Gestational hypertension: Status: Acute (2) GDM, class A2: Status: Acute (3) Anxiety and depression: Problem details: treated with Zoloft 50 mg daily Status: Acute (4) care and examination of lactating mother: Status: Acute (5) Obstetric labial laceration, delivered, current hospitalization: Status: Acute (6) (normal spontaneous vaginal delivery): Status: Acute Plan Comments: PP day #1 Routine care May see as desired Anticipate discharge 03/04/25 Planning 2 hour glucose screen 03/04/25 at 10 AM
[2025-03-03 07:49] VITALS: BP 97/66; PULSE 85; RESP 16; TEMP 36.6; O2SAT 97
--- NOTE | 2025-03-03 08:00 | PM.EN ---
Chart Event Note Date Seen: 03/03/25 Chart Event Note: Pts hemoglobin has dropped to 9.2. Initiating iron QOD PO. Pt agreeable. Nursing aware.
[2025-03-03] MEDS: DOCUSATE SODIUM 100 MG CAPSULE PO (08:35)
[2025-03-03] MEDS: FERROUS SULFATE 325 MG TABLET PO (08:35)
[2025-03-03 12:24] VITALS: BP 113/73; PULSE 92; RESP 16; TEMP 36.7; O2SAT 97
[2025-03-03] MEDS: BENZOCAINE/MENTHOL SPRAY 85 GM AEROSOL 1 APPLIC TOPICAL (14:00)
[2025-03-03 16:31] VITALS: BP 107/70; PULSE 83; RESP 18; TEMP 36.5; O2SAT 96
[2025-03-03 20:07] VITALS: BP 106/67; PULSE 85; RESP 20; TEMP 36.6; O2SAT 97
[2025-03-04 00:31] VITALS: BP 94/62; PULSE 78; RESP 17; TEMP 37.2; O2SAT 96
[2025-03-04] MEDS: ACETAMINOPHEN 500 MG TABLET 1000 MG PO ×2 (01:06→07:04)
[2025-03-04 04:02] VITALS: BP 114/76; PULSE 80; RESP 18; O2SAT 96
[2025-03-04] MEDS: IBUPROFEN 600 MG TABLET PO ×2 (04:06→13:10)
--- NOTE | 2025-03-04 07:58 | P.DS_ITS ---
DS: Providers Provider Date Seen: 03/04/25 Date of admission: 03/01/25 20:14 Primary care physician: Maira Sanchez PA-C Admitting Clinician: Katrina Solis MD Attending Physician on discharge: Frida Jarrett MD Date of Discharge: 03/04/25 DS: Diagnosis Discharge Diagnosis (1) (normal spontaneous vaginal delivery): Status: Acute (2) Obstetric labial laceration, delivered, current hospitalization: Status: Acute (3) Anxiety and depression: Status: Acute Problem details: treated with Zoloft 50 mg daily (4) History of gestational diabetes: Status: Acute Problem details: normal 2 hr GTT on 03/04/25 (5) History of gestational hypertension: Status: Acute Problem details: gestational HTN without severe features at term Exam Narrative: Exam Narrative: General: Pleasant, no acute distress Heart: Regular rate and rhythm, no murmur or gallop Lungs: Clear to auscultation bilaterally Abdomen: Soft, nontender, fundus well below umbilicus Lower extremities: No edema or erythema Const: Vital Signs, click to edit/add: Vital Signs - 24 hr 03/03/25 12:24 03/03/25 16:31 03/03/25 20:07 Temperature 98.1 F 97.7 F 97.8 F Pulse Rate [Pulse Oximeter] 92 83 85 Respiratory Rate 16 18 20 Blood Pressure [Le ft Arm] 113/73 107/70 106/67 Pulse Oximetry 97 96 97 Oxygen Delivery Me thod Room Air Room Air Room Air 03/04/25 00:31 03/04/25 04:02 Temperature 99 F Pulse Rate [Pulse Oximeter] 78 80 Respiratory Rate 17 18 Blood Pressure [Le ft Arm] 94/62 114/76 Pulse Oximetry 96 96 Oxygen Delivery Me thod Room Air Room Air OB - DS: Summary Hospital Course Hospital Course: Tala is a 19-year-old G1 now P 1-0-0-1 woman who is status post normal spontaneous vaginal delivery on 03/02/2025 at 37 weeks, 3 days gestation after induction of labor for indication of gestational hypertension without severe features. Preeclampsia was otherwise complicated by GDM A2, elevated BMI, anxiety and depression. She is also non-immune to hepatitis B, varicella and rubella. She gave to a male infant. She had second-degree and labial lacerations. Her hemoglobin on day 1 was 9.2. She was started on iron supplementation. Her blood pressures have remained entirely normal throughout her course. She is treated with sertraline 50 mg a day for depression and anxiety. Today, on day 2, she has no complaints. She has decided to bottle feed her infant. She denies any struggles with pain. She is ambulating and urinating without difficulty. She denies any heavy bleeding. She had 2 hour glucose tolerance test this morning which was entirely normal. She requests repeat vaccination for rubella at 2 weeks instead of inpatient. [place] Gender: Male Time Spent with Patient Time attestation: Total time spent providing and/or coordinating discharge services: Discharge Plan Discharge Disposition: Home, Self-Care Date of Admission: 03/01/25 20:14 Attending Provider on Discharge: Frida Jarrett Primary Care Provider: Maira Sanchez Condition: Stable Anticipated Discharge Date/Time: 03/04/25 08:01 Discharge Medications: New ferrous sulfate 325 mg (65 mg iron) Tablet 325 mg PO Q48H Qty: 30 0RF docusate sodium 100 mg Capsule 100 mg PO DAILY Qty: 0 0RF ibuprofen 600 mg Tablet 600 mg PO Q6H PRNQty: 0 0RF Continued DHA 200 mg capsule 200 mg PO DAILY sertraline 50 mg tablet 50 mg PO QDAY Qty: 90 3RF Rx Instructions: 25mg daily for the first 7 days, then 50mg daily thereafter alcohol swabs [Alcohol Pads] Pads, Medicated 2 pad topical DAILY Qty: 100 1RF acetaminophen [Tylenol Extra Strength] 500 mg tablet 1,000 mg PO Q6H PRN metoclopramide HCl [Reglan] 5 mg tablet 5 mg PO Q8H Qty: 10 0RF Discontinued folic acid 800 mcg tablet 0.8 mg PO QDAY (DME) insulin syringe-needle U-100 [Sure Comfort Insulin Syringe] 1 mL 30 gauge x 5/16 syringe See Rx Instructions .ROUTE .MEDSUPPLY Qty: 100 3RF Rx Instructions: As directed Humulin N NPH U-100 Insulin 100 unit/mL suspension 38 unit subcut .hs Rx Instructions: 30 U at bedtime (DME) lancets Misc See Rx Instructions .MEDSUPPLY Qty: 100 3RF Rx Instructions: Test blood sugar 4 times daily. (DME) Test Strips Misc See Rx Instructions .MEDSUPPLY Qty: 100 3RF Rx Instructions: Test blood sugar 4 times daily. (DME) Blood Glucose Meter Misc See Rx Instructions .MEDSUPPLY Qty: 1 0RF Rx Instructions: As directed Discharge Orders: Discharge Order (Routine); Ordered 03/04/25 Ordered By: Frida Jarrett Patient Education: OB High Blood Pressure DC, OB Over the Counter Medication Information, OB Vaginal/Bottle Feeding Additional Instructions: Call with blood pressures greater than or equal to 140 / 90. Return to clinic within 5 days for blood pressure check. Activity Level: No Restrictions Discharge Diet: Regular Follow Up Appointments: [facility] [Provider Group] Maira Sanchez PA-C [Primary Care Provider, Family Practice] Forms: MyHealth Info Instructions Discharge Comments: Follow up 5 days for BP check. Then visits at 2 and 6 weeks.
[2025-03-04] MEDS: DOCUSATE SODIUM 100 MG CAPSULE PO (08:21)
[2025-03-04 08:45] VITALS: BP 109/72; PULSE 83; RESP 16; TEMP 36.6; O2SAT 98
[2025-03-04 09:01] LABS: Glucose 2 Hour 127 mg/dl (70-155)
[2025-03-04 12:40] LABS: Glucose Fasting Check 101 mg/dl (60-115)
== END 2025-03-04 13:15 | disposition home or self-care (01) | DRG 806 ==
LOC: OB OUT 20:14 → OB 20:14
PROVIDERS: Obstetrics & Gynecology; Admitting Provider Obstetrics & Gynecology; PCP Physician Assistant; Visit Provider Obstetrics & Gynecology
DX: O36.8130 Decreased fetal movements, third trimester, not applicable or unspecified (principal); D62 Acute posthemorrhagic anemia; Z37.0 Single live birth; O90.81 Anemia of the puerperium; O24.424 Gestational diabetes mellitus in childbirth, insulin controlled; O13.4 Gestational [pregnancy-induced] hypertension without significant proteinuria, complicating childbirth; O70.1 Second degree perineal laceration during delivery; O99.344 Other mental disorders complicating childbirth; F41.9 Anxiety disorder, unspecified; F32.A Depression, unspecified; Z3A.37 37 weeks gestation of pregnancy
CPT/HCPCS: 01967; 36415; 59200; 82565; 82570; 82947; 82950; 82962; 84156; 84450; 84460; 84520; 85018; 85025; 85027; 86592; 86850; 86900; 86901; A9270; C1726; J2270; J2405; J2795; J3010; J7120